=== PATIENT | male | born 1950 | race Caucasian/White ===

== ENCOUNTER 2018-08-12 07:07 | Emergency (ER) | payer OTHER ==
[2018-08-12 07:46] LABS: Absolute Lymphocytes (CBC) 1.4 K/uL (0.7-4.9); Basophils % 0.6 % (0-1.3); Eosinophils % 1.7 % (0-4.4); Hematocrit 44.5 % (39.6-49.0); Lymphocytes % 18.3 % (15.3-44.8); MPV 8.9 fL (7.6-11.3); Monocytes % 6.9 % (3.3-12.3); RBC Red Blood Cell Count 5.48 M/uL (4.33-5.43)
--- NOTE | 2018-08-12 07:56 | RAD REPORT ---
EXAM DESCRIPTION: CT - Head Brain Wo Cont - 08/12/2018 7:51 am CLINICAL HISTORY: dizziness,blurred vision Headache, drowsiness, visual disturbances COMPARISON: <Comparisons> TECHNIQUE: All CT scans are performed using dose optimization technique as appropriate and may inclu de automated exposure control or mA/KV adjustment according to patient size. FINDINGS: No intracranial hemorrhage, hydrocephalus or extra-axial fluid collection.No areas of brai n edema or evidence of midline shift. The paranasal sinuses and mastoids are clear. The calvarium is intact. IMPRESSION: No acute intracranial abnormality.
[2018-08-12 08:06] LABS: Potassium 4.2 mmol/L (3.5-5.1)
--- NOTE | 2018-08-12 09:20 | RAD REPORT ---
EXAM DESCRIPTION: MRI - Brain Wo Cont - 08/12/2018 8:54 am CLINICAL HISTORY: Dizziness, blurred vision, stroke-like symptoms COMPARISON: CT August 12 TECHNIQUE: Sagittal T1-weighted images were obtained along with axial PD, heavily T2-weighted and T2 -FLAIR images. Axial DWI and ADC mapping sequences were also obtained along with coronal heavily T2-w eighted images. FINDINGS: No intracranial hemorrhage, mass or acute infarction. There is no edema or shift of midlin e structures. No extra-axial fluid collections. Bentley-matter/white matter junction is preserved. Signa l voids are seen as a normal finding in the major intracranial vessels. Mild atrophy changes are present. Ventricles are in proportion to the amount of volume loss. Punctate white matter signal abnormalities are scattered in the cerebral white matter. In a patient this age this is most likely chronic ischemic change. Basal ganglia, thalamus and brainstem tissue clear of an y measurable chronic ischemic change. Mastoid air cells and paranasal sinuses are clear. IMPRESSION: Mild atrophy and mild chronic ischemic change. No acute intracranial finding.
--- NOTE | 2018-08-12 09:34 | EDPHYS ---
Physician Documentation [facility] Name: Finn Lu Age: 67 yrs Sex: Male : 1950 Arrival Date: 08/12/2018 Time: 07:09 Bed 6 Private MD: ED Physician Reynaldo Shearer HPI: 08/12 07:23 This 67 yrs old Male presents to ER via Ambulatory with complaints of rn Dizziness, double vision. 07:23 The patient presents with dizziness. Onset: The symptoms/episode began/occurred rn yesterday. Modifying factors: The symptoms are alleviated by closing eyes, the symptoms are aggravated by nothing. Severity of symptoms: At their worst the symptoms were mild in the emergency department the symptoms are unchanged. The patient has not experienced similar symptoms in the past. The patient has not recently seen a physician. Reports double vision that began yesterday, no blurred or decreased vision, corrected by closing either eye, no headache or trauma, takes aspirin, here because in past had spontaneous head bleed and required surgery. Does not feel like that episode but wants to make sure. No other neurological complaint. Feels dizzy due to double vision.. Historical: - Allergies: 07:25 No Known Allergies; iw - Home Meds: 07:25 amlodipine-benazepril 5-40 mg oral cap 1 cap once daily [Active]; Centrum Silver iw 0.4-300-250 mg-mcg-mcg oral tab daily [Active]; Cinnamon 500 mg oral cap daily [Active]; omeprazole 40 mg Oral cpDR 1 cap 2 times per day [Active]; Ecotrin 81 mg Oral TbEC 1 tab once daily [Active]; escitalopram oxalate 20 mg oral tab 1 tab once daily [Active]; rosuvastatin 20 mg oral tab 1 tab once daily [Active]; Novolin R 40 units Sub-Q daily [Active]; Vascepa 1 gram oral cap daily [Active]; iron oral 65 mg oral once daily [Active]; metoprolol tartrate 25 mg Oral tab 1 tab 2 times per day [Active]; [place] 3-6-9 40-60-10 mg-mg-unit oral cap daily [Active]; potassium chloride 20 mEq Oral TbER 1 tab once daily [Active]; Vitamin C Oral twice a day [Active]; - PMHx: 07:52 Diabetes - IDDM; Hypertension; Hyperlipidemia; iw - PSHx: 07:52 Heart stents; isis holes; iw - Immunization history:: Adult Immunizations up to date. - Social history:: Smoking status: Patient/guardian denies using tobacco. - Family history:: not pertinent. - Ebola Screening: : Patient negative for fever greater than or equal to 101.5 degrees Fahrenheit, and additional compatible Ebola Virus Disease symptoms Patient denies exposure to infectious person Patient denies travel to an Ebola-affected area in the 21 days before illness onset No symptoms or risks identified at this time. - Hospitalizations: : No recent hospitalization is reported. ROS: 07:25 Constitutional: Negative for fever, chills, and weight loss, Eyes: + double vision, no rn loss or decreased vision, no drainage or trauma Cardiovascular: Negative for chest pain, palpitations, and edema, Respiratory: Negative for shortness of breath, cough, wheezing, and pleuritic chest pain, Abdomen/GI: Negative for abdominal pain, nausea, vomiting, diarrhea, and constipation, MS/Extremity: Negative for injury and deformity, Skin: Negative for injury, rash, and discoloration, Neuro: Negative for headache, weakness, numbness, tingling, and seizure. Exam: 07:25 Constitutional: This is a well developed, well nourished patient who is awake, alert, rn and in no acute distress. Head/Face: Normocephalic, atraumatic. Eyes: Pupils equal round and reactive to light. Questionable left lateral rectus partial palsy. Lids and lashes normal. Conjunctiva and sclera are non-icteric and not injected. Cornea within normal limits. Periorbital areas with no swelling, redness, or edema. Diplopia corrects with closure of either eye. All visual estes intact to confrontation. ENT: MMM Cardiovascular: Regular rate and rhythm. No pulse deficits. Respiratory: Lungs have equal breath sounds bilaterally, clear to auscultation. No increased work of breathing, no retractions or nasal flaring. MS/ Extremity: Pulses equal, no cyanosis. Neurovascular intact. Full, normal range of motion. Equal circumference. Neuro: Awake and alert, GCS 15, oriented to person, place, time, and situation. Cranial nerves II-XII grossly intact. Motor strength 5/5 in all extremities. Sensory grossly intact. Cerebellar exam normal. Normal gait. 07:44 ECG was reviewed by the Attending Physician. rn Vital Signs: 07:25 BP 159 / 85; Pulse 65; Resp 16; Temp 98.3; Pulse Ox 97% on R/A; Weight 108.86 kg; iw Height 5 ft. 10 in. (177.80 cm); Pain 0/10; 08:00 BP 140 / 64; Pulse 64; Resp 16 S; Pulse Ox 96% on R/A; aa5 09:05 BP 151 / 77; Pulse 66; Resp 18 S; Temp 98.0(TE); Pulse Ox 98% on R/A; Pain 0/10; aa5 07:25 Body Mass Index 34.44 (108.86 kg, 177.80 cm) iw NIH Stroke Scale Scores: 07:20 NIHSS Score: 0 aa5 MDM: 07:13 Patient medically screened. rn 07:25 ED course: Reports just went to eye doctor and had stress test, both were ok, has rn cataract but otherwise normal.. 09:33 Differential diagnosis: CVA, generalized weakness, idiopathic dizziness, diplopia, rn cranial nerve palsy, diabetic complication. Data reviewed: vital signs, nurses notes, lab test result(s), EKG, radiologic studies, CT scan, MRI, and as a result, I will discharge patient. Counseling: I had a detailed discussion with the patient and/or guardian regarding: the historical points, exam findings, and any diagnostic results supporting the discharge/admit diagnosis, lab results, radiology results, the need for outpatient follow up, to return to the emergency department if symptoms worsen or persist or if there are any questions or concerns that arise at home. Special discussion: I discussed with the patient/guardian in detail that at this point there is no indication for admission to the hospital. It is understood, however, that if the symptoms persist or worsen the patient needs to return immediately for re-evaluation. Based on the history and exam findings, there is no indication for further emergent testing or inpatient evaluation. I discussed with the patient/guardian the need to see the opthamologist for further evaluation of the symptoms, I discussed with the patient/guardian the need to see the primary care provider for further evaluation of the symptoms. 08/12 07: Order name: CBC with Diff rn 08/12 06: Order name: Basic Metabolic Panel rn 06/21 07:22 Order name: CT Head Brain wo Cont rn 08/12 07:37 Order name: Basic Metabolic Panel; Complete Time: 08:19 EDMS 08/12 07:37 Order name: CBC with Automated Diff; Complete Time: 08:19 EDMS 08/12 07:42 Order name: Head Brain Wo Cont; Complete Time: 08:19 EDMS 08/12 07:22 Order name: IV Start; Complete Time: 07:35 rn 08/12 07:22 Order name: EKG; Complete Time: 08:25 rn 08/12 07:22 Order name: EKG - Nurse/Tech; Complete Time: 07:42 rn 08/12 07:42 Order name: EKG Electrocardiogram EDMS 08/12 08:20 Order name: Brain Wo Cont MRI rn 08/12 09:22 Order name: MRI; Complete Time: 09:32 EDMS EC:44 Rate is 66 beats/min. Rhythm is regular. QRS [place] is Normal. MT interval is normal. QRS rn interval is normal. QT interval is normal. No Q waves. T waves are Normal. No ST changes noted. Clinical impression: Normal ECG. Interpreted by me. Reviewed by me. Administered Medications: No medications were administered Disposition: 08/12/18 09:34 Discharged to Home. Impression: Diplopia. - Condition is Stable. - Discharge Instructions: Diplopia. - Medication Reconciliation Form, Thank You Letter, Antibiotic Education, Prescription Opioid Use form. - Follow up: Caty Edmond MD; When: As needed; Reason: Recheck today's complaints, Re-evaluation by your physician. - Problem is new. - Symptoms are unchanged. NIH Stroke Scale - NIH Stroke Score Date: 08/12/2018 Time: 07:20 Total Score = 0 1a. Level of Consciousness (LOC) - 0(Alert) 1b. Level of Consciousness (LOC) (Year \T\ Age) - 0(Both) 1c. LOC Commands (Open \T\ Closes Eyes/Operations Specialist) - 0(Both) 2. Best Gaze (Lateral Gaze Paresis) - 0(Normal) 3. Visual Field Loss - 0(No visual loss) 4. Facial Palsy - 0(Normal) 5a. Left Arm: Motor (10-second hold) - 0(No drift) 5b. Right Arm: Motor (10-second hold) - 0(No drift) 6a. Left Leg: Motor (5-second hold - always test supine) - 0(No drift) 6b. Right Leg: Motor (5-second hold - always test supine) - 0(No drift) 7. Limb Ataxia (finger/nose \T\ heel/mora - test with eyes open) - 0(Absent) 8. Sensory Loss (pinprick arms/legs/face) - 0(Normal) 9. Best Language: Aphasia (description/naming/reading) - 0(No aphasia) 10. Dysarthria (speech clarity - read or repeat words) - 0(Normal) 11. Extinction and Inattention (visual/tactile/auditory/spatial/personal) - 0(No abnormality) Initials: aa5 Signatures: Dispatcher [employer] EDYesica Murray RN RN iw Nieto, Roman, MD MD rn Calderon, Audri, RN RN aa5 Corrections: (The following items were deleted from the chart) 07:44 07:42 Head Brain Wo Cont ordered. EDMI EDMI 09:48 09:34 08/12/2018 09:34 Discharged to Home. Impression: Diplopia. Condition is aa5 Stable. Forms are Medication Reconciliation Form, Thank You Letter, Antibiotic Education, Prescription Opioid Use. Follow up: Caty Edmond; When: As needed; Reason: Recheck today's complaints, Re-evaluation by your physician. Problem is new. Symptoms are unchanged. rn
--- NOTE | 2018-08-12 09:34 | ER ---
Nurse's Notes [facility] Name: Finn Lu Age: 67 yrs Sex: Male : 1950 Arrival Date: 08/12/2018 Time: 07:09 Bed 6 Private MD: Diagnosis: Diplopia Presentation: 08/12 07:20 Presenting complaint: Patient states: woke up with dizziness and double vision iw yesterday morning, hx of brain bleed 6 months ago, states he was on plavix for a long time, denies trauma, denies headache or weakness today, reports felling tingling in right fingertips. Transition of care: patient was not received from another setting of care. Onset of symptoms was August 11, 2018. Risk Assessment: Do you want to hurt yourself or someone else? Patient reports no desire to harm self or others. Initial Sepsis Screen: Does the patient meet any 2 criteria? No. Patient's initial sepsis screen is negative. Does the patient have a suspected source of infection?. Care prior to arrival: None. 07:20 Method Of Arrival: Ambulatory iw 07:20 Acuity: ABIGAIL 2 iw Historical: - Allergies: 07:25 No Known Allergies; iw - Home Meds: 07:25 amlodipine-benazepril 5-40 mg oral cap 1 cap once daily [Active]; Centrum Silver iw 0.4-300-250 mg-mcg-mcg oral tab daily [Active]; Cinnamon 500 mg oral cap daily [Active]; omeprazole 40 mg Oral cpDR 1 cap 2 times per day [Active]; Ecotrin 81 mg Oral TbEC 1 tab once daily [Active]; escitalopram oxalate 20 mg oral tab 1 tab once daily [Active]; rosuvastatin 20 mg oral tab 1 tab once daily [Active]; Novolin R 40 units Sub-Q daily [Active]; Vascepa 1 gram oral cap daily [Active]; iron oral 65 mg oral once daily [Active]; metoprolol tartrate 25 mg Oral tab 1 tab 2 times per day [Active]; [place] 3-6-9 40-60-10 mg-mg-unit oral cap daily [Active]; potassium chloride 20 mEq Oral TbER 1 tab once daily [Active]; Vitamin C Oral twice a day [Active]; - PMHx: 07:52 Diabetes - IDDM; Hypertension; Hyperlipidemia; iw - PSHx: 07:52 Heart stents; isis holes; iw - Immunization history:: Adult Immunizations up to date. - Social history:: Smoking status: Patient/guardian denies using tobacco. - Family history:: not pertinent. - Ebola Screening: : Patient negative for fever greater than or equal to 101.5 degrees Fahrenheit, and additional compatible Ebola Virus Disease symptoms Patient denies exposure to infectious person Patient denies travel to an Ebola-affected area in the 21 days before illness onset No symptoms or risks identified at this time. - Hospitalizations: : No recent hospitalization is reported. Screenin:36 Abuse screen: Denies threats or abuse. Nutritional screening: No deficits noted. aa5 Tuberculosis screening: No symptoms or risk factors identified. 08:00 Fall Risk IV access (20 points). Total Betancourt Fall Scale indicates No Risk (0-24 pts). aa5 Assessment: 07:20 General: Appears comfortable, Behavior is calm, cooperative. Pain: Denies pain. Neuro: aa5 Level of Consciousness is awake, alert, obeys commands, Oriented to person, place, time, situation, Office Worker are equal bilaterally Moves all extremities. Gait is steady, Speech is normal, Facial symmetry appears normal, Pupils are PERRLA, Reports diplopia, dizziness, tingling to right fingertips . Denies weakness blurred vision headache. Cardiovascular: Heart tones S1 S2 present Rhythm is regular. Respiratory: Airway is patent Respiratory effort is even, unlabored, Respiratory pattern is regular, symmetrical. GI: No signs and/or symptoms were reported involving the gastrointestinal system. : No signs and/or symptoms were reported regarding the genitourinary system. EENT: No signs and/or symptoms were reported regarding the EENT system. Derm: Skin is pink, warm \T\ dry. Musculoskeletal: Range of motion: intact in all extremities. 07:45 Reassessment: Pt taken to CT via stretcher . aa5 08:30 Reassessment: Pt to MRI. aa5 09:00 Reassessment: Patient is alert, oriented x 3, equal unlabored respirations, skin aa5 warm/dry/pink. Pt back from MRI. Pt sitting up watching TV. Pt notified of wait time for MRI results. Pt verbalized understanding. Pt reports diplopia has not improved. . 09:45 Reassessment: Patient is alert, oriented x 3, equal unlabored respirations, skin aa5 warm/dry/pink. Patient denies pain at this time. Vital Signs: 07:25 BP 159 / 85; Pulse 65; Resp 16; Temp 98.3; Pulse Ox 97% on R/A; Weight 108.86 kg; iw Height 5 ft. 10 in. (177.80 cm); Pain 0/10; 08:00 BP 140 / 64; Pulse 64; Resp 16 S; Pulse Ox 96% on R/A; aa5 09:05 BP 151 / 77; Pulse 66; Resp 18 S; Temp 98.0(TE); Pulse Ox 98% on R/A; Pain 0/10; aa5 07:25 Body Mass Index 34.44 (108.86 kg, 177.80 cm) iw NIH Stroke Scale Scores: 07:20 NIHSS Score: 0 aa5 ED Course: 07:09 Patient arrived in ED. mr 07:13 Reynaldo Shearer MD is Attending Physician. rn 07:14 Blanca Garcia, JAREN is Primary Nurse. aa5 07:20 Arm band placed on Patient placed in an exam room, on a stretcher. aa5 07:20 Patient has correct armband on for positive identification. Bed in low position. Call aa5 light in reach. Side rails up X 1. 07:21 Triage completed. iw 07:30 Initial lab(s) drawn, by me, sent to lab. Inserted saline lock: 20 gauge in right aa5 antecubital area, using aseptic technique. Blood collected. 07:44 EKG done, by crime lab technician. reviewed by Reynaldo Shearer MD. at1 07:47 No provider procedures requiring assistance completed. aa5 07:51 Head Brain Wo Cont In Process Unspecified. EDMS 08:43 Patient moved to MRI via wheelchair. em2 09:21 MRI completed. Patient tolerated well. Patient moved back from MRI. em2 09:34 Caty Edmond MD is Referral Physician. rn 09:45 IV discontinued, intact, bleeding controlled, No redness/swelling at site. Pressure aa5 dressing applied. Administered Medications: No medications were administered Outcome: 09:34 Discharge ordered by MD. rn 09:45 Discharged to home ambulatory. aa5 09:45 Condition: stable 09:45 Discharge instructions given to patient, Instructed on discharge instructions, follow up and referral plans. Demonstrated understanding of instructions, follow-up care. 09:48 Patient left the ED. aa5 NIH Stroke Scale - NIH Stroke Score Date: 08/12/2018 Time: 07:20 Total Score = 0 1a. Level of Consciousness (LOC) - 0(Alert) 1b. Level of Consciousness (LOC) (Year \T\ Age) - 0(Both) 1c. LOC Commands (Open \T\ Closes Eyes/Dynamics Ax Developer) - 0(Both) 2. Best Gaze (Lateral Gaze Paresis) - 0(Normal) 3. Visual Field Loss - 0(No visual loss) 4. Facial Palsy - 0(Normal) 5a. Left Arm: Motor (10-second hold) - 0(No drift) 5b. Right Arm: Motor (10-second hold) - 0(No drift) 6a. Left Leg: Motor (5-second hold - always test supine) - 0(No drift) 6b. Right Leg: Motor (5-second hold - always test supine) - 0(No drift) 7. Limb Ataxia (finger/nose \T\ heel/mora - test with eyes open) - 0(Absent) 8. Sensory Loss (pinprick arms/legs/face) - 0(Normal) 9. Best Language: Aphasia (description/naming/reading) - 0(No aphasia) 10. Dysarthria (speech clarity - read or repeat words) - 0(Normal) 11. Extinction and Inattention (visual/tactile/auditory/spatial/personal) - 0(No abnormality) Initials: aa5 Signatures: Dispatcher [employer] [facility] Alaina Brown Irene, JAREN EASTMAN iw Reynaldo Shearer MD MD rn Calderon, Audri, RN RN aa5 [place] em2 [place], backwinder EKG Tat1 Corrections: (The following items were deleted from the chart) 07:50 07:25 BP 159 / 85; Pulse 65bpm; Resp 16bpm; Pulse Ox 97% RA; Temp 98.3F; iw iw 09:06 09:05 Pulse 66bpm; Resp 18bpm; Spontaneous; Pulse Ox 98% RA; Temp 98.0F aa5 Temporal; Pain 0/10; aa5 09:06 09:00 Reassessment: Patient is alert, oriented x 3, equal unlabored aa5 respirations, skin warm/dry/pink. Pt back from MRI. aa5
--- NOTE | 2018-08-12 10:47 | EKG ---
Test Date: 2018-08-12 Test Time: 07:44:38 Compo Caster: EDILBERTO MEASUREMENT RESULTS: Intervals: Rate: 66 KS: 156 QRSD: 108 QT: 420 QTc: 440 [place]: P: 38 KS: 156 QRS: 49 T: 60 INTERPRETIVE STATEMENTS: Normal sinus rhythm Normal ECG No previous ECG available for comparison Electronically Signed On 08-12-18 10:47:35 CDT by Yoandy Snyder
== END 2018-08-12 09:48 | disposition home or self-care (01) ==
LOC: ER 07:07
DX: H53.2 Diplopia (principal); E11.9 Type 2 diabetes mellitus without complications; I10 Essential (primary) hypertension; E78.5 Hyperlipidemia, unspecified; Z79.4 Long term (current) use of insulin
CPT/HCPCS: 36415; 70450; 70551; 80048; 85025; 93005; 99284

== ENCOUNTER 2018-09-28 17:03 | Emergency (ER) | payer OTHER ==
[2018-09-28] MEDS ORDERED: BUPIVACAINE 0.5% PF 10 ML VIAL ONE (17:31)
--- NOTE | 2018-09-28 17:46 | RAD REPORT ---
EXAM DESCRIPTION: RAD -Hand Left 3 View - 09/28/2018 5:37 pm CLINICAL HISTORY: Left hand pain status post injury FINDINGS: Comminuted fracture involves the distal aspect of the second distal phalanx. No dislocatio n.
[2018-09-28] MEDS ORDERED: CEFAZOLIN SODIUM 1 GM/VIAL ONE (18:54)
[2018-09-28] MEDS ORDERED: TETANUS & DIPHTHERIA TOX,ADULT 0.5 ML VIAL ONE (18:55)
[2018-09-28] MEDS ORDERED: WATER FOR INJ,STERILE 10 ML ONE (18:56)
--- NOTE | 2018-09-28 18:58 | ER ---
Nurse's Notes [facility] Name: Finn Lu Age: 68 yrs Sex: Male : 1950 Arrival Date: 09/28/2018 Time: 17:04 Bed 13 Private MD: Diagnosis: Laceration without foreign body of left index finger with damage to nail;Open fracuter left index finger Presentation: 09/28 17:08 Presenting complaint: Patient states: Distal left 2nd digit VS hand saw. Transition of care: patient was not received from another setting of care. Onset of symptoms was September 28, 2018. Risk Assessment: Do you want to hurt yourself or someone else? Patient reports no desire to harm self or others. Initial Sepsis Screen: Does the patient meet any 2 criteria? No. Patient's initial sepsis screen is negative. Does the patient have a suspected source of infection? No. Patient's initial sepsis screen is negative. Care prior to arrival: None. 17:08 Method Of Arrival: Ambulatory aj 17:08 Acuity: ABIGAIL 4 aj Triage Assessment: 17:09 General: Appears in no apparent distress. comfortable, Behavior is calm, cooperative, aj appropriate for age. Pain: Complains of pain in dorsal aspect of distal phalanx of left index finger. Neuro: Level of Consciousness is awake, alert, obeys commands, Oriented to person, place, time, situation, Appropriate for age. Respiratory: Airway is patent Respiratory effort is even, unlabored, Respiratory pattern is regular, symmetrical. Derm: Skin is intact, is healthy with good turgor, Skin is pink, warm \T\ dry. normal. Injury Description: Laceration sustained to dorsal aspect of distal phalanx of left index finger. Historical: - Allergies: 17:09 No Known Allergies; aj - Home Meds: 17:09 amlodipine-benazepril 5-40 mg Oral cap 1 cap once daily [Active]; Centrum Silver aj 0.4-300-250 mg-mcg-mcg Oral tab daily [Active]; Cinnamon 500 mg Oral cap daily [Active]; Ecotrin 81 mg Oral TbEC 1 tab once daily [Active]; escitalopram oxalate 20 mg Oral tab 1 tab once daily [Active]; iron 65 mg Oral once daily [Active]; metoprolol tartrate 25 mg Oral tab 1 tab 2 times per day [Active]; Novolin R 40 units Sub-Q daily [Active]; [place] 3-6-9 40-60-10 mg-mg-unit Oral cap daily [Active]; omeprazole 40 mg Oral cpDR 1 cap 2 times per day [Active]; potassium chloride 20 mEq Oral TbER 1 tab once daily [Active]; rosuvastatin 20 mg Oral tab 1 tab once daily [Active]; Vascepa 1 gram Oral cap daily [Active]; Vitamin C Oral twice a day [Active]; - PMHx: 17:09 Diabetes - IDDM; Hyperlipidemia; Hypertension; aj - PSHx: 17:09 Heart stents; isis holes; aj - Immunization history:: Last tetanus immunization: unknown. - Social history:: Smoking status: Patient/guardian denies using tobacco. - Ebola Screening: : Patient negative for fever greater than or equal to 101.5 degrees Fahrenheit, and additional compatible Ebola Virus Disease symptoms Patient denies exposure to infectious person Patient denies travel to an Ebola-affected area in the 21 days before illness onset No symptoms or risks identified at this time. Screenin:49 Abuse screen: Denies threats or abuse. Denies injuries from another. Nutritional wh screening: No deficits noted. Tuberculosis screening: No symptoms or risk factors identified. Fall Risk None identified. Assessment: 18:36 General: Appears in no apparent distress. Behavior is calm, cooperative, appropriate wh for age. Pain: Complains of pain in left index finger, dorsal aspect of distal phalanx of left index finger and left index fingernail Pain does not radiate. Pain currently is 6 out of 10 on a pain scale. Neuro: Level of Consciousness is awake, alert, obeys commands, Oriented to person, place, time, situation, Appropriate for age. Cardiovascular: Capillary refill < 3 seconds. Respiratory: Airway is patent Respiratory effort is even, unlabored, Respiratory pattern is regular, symmetrical. GI: Abdomen is flat, non-distended. : No signs and/or symptoms were reported regarding the genitourinary system. EENT: No signs and/or symptoms were reported regarding the EENT system. Derm: Skin is intact, is healthy with good turgor, Skin is pink, warm \T\ dry. normal. Musculoskeletal: Range of motion: intact in all extremities. Injury Description: Laceration sustained to left index finger, dorsal aspect of distal phalanx of left index finger and left index fingernail is clean, full thickness, was sustained 30-60 minutes ago. a small amount of bleeding noted at this time. 19:24 Reassessment: Patient appears in no apparent distress at this time. Patient and/or family updated on plan of care and expected duration. Pain level reassessed. Patient is alert, oriented x 3, equal unlabored respirations, skin warm/dry/pink. Patient denies pain at this time. Vital Signs: 17:09 BP 176 / 66; Pulse 81; Resp 16; Temp 97.4; Pulse Ox 95% on R/A; Weight 117.93 kg; aj Height 5 ft. 11 in. (180.34 cm); 18:00 BP 173 / 87; Pulse 78; Resp 18; Pulse Ox 99% on R/A; wh 19:26 BP 147 / 78; Pulse 75; Resp 18; Pulse Ox 99% on R/A; 17:09 Body Mass Index 36.26 (117.93 kg, 180.34 cm) ED Course: 17:04 Patient arrived in ED. as 17:08 Triage completed. aj 17:09 Arm band placed on left wrist. Patient placed in an exam room. 17:15 Bowen Wilson PA is PHCP. jr8 17:15 Lawrence Lin MD is Attending Physician. jr8 17:22 Marlene Moreau is Primary Nurse. 17:38 XRAY Hand LEFT 3 View In Process Unspecified. EDMS 18:30 Assist provider with laceration repair on left index finger, dorsal aspect of distal wh phalanx of left index finger and left index fingernail that was 2.5 cm. or less using sutures. Set up tray. Performed by Bowen SALDAÑA Dressed with 4X4s, Patient tolerated well. Patient did not have IV access during this emergency room visit. 18:49 Patient has correct armband on for positive identification. Pulse ox on. NIBP on. 18:56 Gonzalez Zhu MD is Referral Physician. jr8 Administered Medications: 17:22 CANCELLED (Physician Discretion): Bupivacaine (0.5 %) 11 vials 10 ml Infiltration once jr8 19:07 Drug: Tetanus-Diphtheria Toxoid Adult 0.5 ml {Edge [employer]ander Operator: [employer]. Exp: 05/14/2020. Lot #: [id number]. } Route: IM; Site: left deltoid; 19:27 Follow up: Response: No adverse reaction 19:07 Drug: Ancef 1 grams Route: IM; Site: right gluteus; 19:27 Follow up: Response: No adverse reaction 19: Drug: Bupivacaine (0.5 %) 1 vials {Note: Admisntered by Steve .} Volume: 10 ml; Route: wh Infiltration; Outcome: 18:57 Discharge ordered by MD. rubio 19:25 Discharged to home ambulatory. 19:25 Condition: good 19:25 Discharge instructions given to patient, Instructed on discharge instructions, follow up and referral plans. no drinking with medication, no driving heavy equipment, medication usage, wound care, Demonstrated understanding of instructions, follow-up care, medications, wound care, Prescriptions given X 2. 19:26 Patient left the ED. Signatures: Dispatcher [employer] EDMS Taylor Roberto RN RN aj Martinez, Amelia as Roszak, Josh, PA PA jr8 Habalo, Winsy
--- NOTE | 2018-09-28 18:58 | EDPHYS ---
Physician Documentation [facility] Name: Finn Lu Age: 68 yrs Sex: Male : 1950 Arrival Date: 09/28/2018 Time: 17:04 Bed 13 Private MD: ED Physician Lawrence Lin HPI: 09/28 17:39 This 68 yrs old Male presents to ER via Ambulatory with complaints of Finger jr8 Injury. 17:39 Onset: The symptoms/episode began/occurred acutely, today. The patient has not jr8 experienced similar symptoms in the past. The patient has not recently seen a physician. Was using table saw and kicked back causing laceration distal tip second digit affecting nail bed as well . Historical: - Allergies: 17:09 No Known Allergies; aj - Home Meds: 17:09 amlodipine-benazepril 5-40 mg Oral cap 1 cap once daily [Active]; Centrum Silver aj 0.4-300-250 mg-mcg-mcg Oral tab daily [Active]; Cinnamon 500 mg Oral cap daily [Active]; Ecotrin 81 mg Oral TbEC 1 tab once daily [Active]; escitalopram oxalate 20 mg Oral tab 1 tab once daily [Active]; iron 65 mg Oral once daily [Active]; metoprolol tartrate 25 mg Oral tab 1 tab 2 times per day [Active]; Novolin R 40 units Sub-Q daily [Active]; [place] 3-6-9 40-60-10 mg-mg-unit Oral cap daily [Active]; omeprazole 40 mg Oral cpDR 1 cap 2 times per day [Active]; potassium chloride 20 mEq Oral TbER 1 tab once daily [Active]; rosuvastatin 20 mg Oral tab 1 tab once daily [Active]; Vascepa 1 gram Oral cap daily [Active]; Vitamin C Oral twice a day [Active]; - PMHx: 17:09 Diabetes - IDDM; Hyperlipidemia; Hypertension; aj - PSHx: 17:09 Heart stents; isis holes; aj - Immunization history:: Last tetanus immunization: unknown. - Social history:: Smoking status: Patient/guardian denies using tobacco. - Ebola Screening: : Patient negative for fever greater than or equal to 101.5 degrees Fahrenheit, and additional compatible Ebola Virus Disease symptoms Patient denies exposure to infectious person Patient denies travel to an Ebola-affected area in the 21 days before illness onset No symptoms or risks identified at this time. ROS: 17:39 Eyes: Negative for injury, pain, redness, and discharge, ENT: Negative for injury, jr8 pain, and discharge, Neck: Negative for injury, pain, and swelling, Cardiovascular: Negative for chest pain, palpitations, and edema, Respiratory: Negative for shortness of breath, cough, wheezing, and pleuritic chest pain, Abdomen/GI: Negative for abdominal pain, nausea, vomiting, diarrhea, and constipation, Back: Negative for injury and pain, Skin: Negative for injury, rash, and discoloration, Neuro: Negative for headache, weakness, numbness, tingling, and seizure. 17:39 MS/extremity: Positive for injury or acute deformity, laceration, pain, tenderness, of the dorsal aspect of distal phalanx of left index finger. Exam: 17:39 Eyes: Pupils equal round and reactive to light, extra-ocular motions intact. Lids and jr8 lashes normal. Conjunctiva and sclera are non-icteric and not injected. Cornea within normal limits. Periorbital areas with no swelling, redness, or edema. ENT: Nares patent. No nasal discharge, no septal abnormalities noted. Tympanic membranes are normal and external auditory canals are clear. Oropharynx with no redness, swelling, or masses, exudates, or evidence of obstruction, uvula midline. Mucous membranes moist. Neck: Trachea midline, no thyromegaly or masses palpated, and no cervical lymphadenopathy. Supple, full range of motion without nuchal rigidity, or vertebral point tenderness. No Meningismus. Cardiovascular: Regular rate and rhythm with a normal S1 and S2. No gallops, murmurs, or rubs. Normal PMI, no JVD. No pulse deficits. Respiratory: Lungs have equal breath sounds bilaterally, clear to auscultation and percussion. No rales, rhonchi or wheezes noted. No increased work of breathing, no retractions or nasal flaring. Abdomen/GI: Soft, non-tender, with normal bowel sounds. No distension or tympany. No guarding or rebound. No evidence of tenderness throughout. Back: No spinal tenderness. No costovertebral tenderness. Full range of motion. Skin: Warm, dry with normal turgor. Normal color with no rashes, no lesions, and no evidence of cellulitis. Neuro: Awake and alert, GCS 15, oriented to person, place, time, and situation. Cranial nerves II-XII grossly intact. Motor strength 5/5 in all extremities. Sensory grossly intact. Cerebellar exam normal. Normal gait. 17:39 Musculoskeletal/extremity: Extremities: grossly normal except: noted in the dorsal aspect of distal phalanx of left index finger: Patient has laceration to distal tip of 2nd digit involving the nailbed. Pad of finger intact. Partial amputation present. Bleeding controlled , ROM: intact in all extremities, Circulation is intact in all extremities. Sensation intact. Vital Signs: 17:09 BP 176 / 66; Pulse 81; Resp 16; Temp 97.4; Pulse Ox 95% on R/A; Weight 117.93 kg; aj Height 5 ft. 11 in. (180.34 cm); 18:00 BP 173 / 87; Pulse 78; Resp 18; Pulse Ox 99% on R/A; wh 19:26 BP 147 / 78; Pulse 75; Resp 18; Pulse Ox 99% on R/A; wh 17:09 Body Mass Index 36.26 (117.93 kg, 180.34 cm) aj Laceration: 18:54 Wound Repair of 2.5cm ( 1.0in ) full thickness laceration to dorsal aspect of distal jr8 phalanx of left index finger. Distal neuro/vascular/tendon intact. Anesthesia: Digital block administered with 4 mls of 0.5% marcaine. Wound prep: Extensive cleansing with betadine, Wound irrigation with saline, Wound explored extensively, Copious irrigation. Skin closed with 4 4-0 Prolene using interrupted sutures and sterile technique. tuft closed with 2 4-0 chromic using interrupted sutures and sterile technique. Patient tolerated well. MDM: 17:15 Patient medically screened. jr8 18:54 Data reviewed: vital signs, nurses notes, radiologic studies, plain films, and as a jr8 result, I will discharge patient. Data interpreted: Pulse oximetry: on room air is 99 %. Interpretation: normal. Counseling: I had a detailed discussion with the patient and/or guardian regarding: the historical points, exam findings, and any diagnostic results supporting the discharge/admit diagnosis, radiology results, the need for outpatient follow up, a hand specialist, to return to the emergency department if symptoms worsen or persist or if there are any questions or concerns that arise at home. 09/28 17:21 Order name: XRAY Hand LEFT 3 View; Complete Time: 17:48 [facility] 09/28 17:22 Order name: Chromic, Sutures; Complete Time: 17:38 [facility] 09/28 17:22 Order name: Prolene, Sutures; Complete Time: 17:38 [facility] 09/28 17:22 Order name: Dressing - Wound; Complete Time: 17:38 [facility] 09/28 17:22 Order name: Gloves, Sterile; Complete Time: 17:39 [facility] 09/28 17:22 Order name: Setup Suture Tray; Complete Time: 17:39 Administered Medications: 17:22 CANCELLED (Physician Discretion): Bupivacaine (0.5 %) 11 vials 10 ml Infiltration once [facility] 19:07 Drug: Tetanus-Diphtheria Toxoid Adult 0.5 ml {Sc[employer] Operator: [employer]. Exp: 05/14/2020. Lot #: [id number]. } Route: IM; Site: left deltoid; 19:27 Follow up: Response: No adverse reaction 19:07 Drug: Ancef 1 grams Route: IM; Site: right gluteus; 19:27 Follow up: Response: No adverse reaction 19:07 Drug: Bupivacaine (0.5 %) 1 vials {Note: Admisntered by Steve .} Volume: 10 ml; Route: Infiltration; Disposition: 09/29 09:12 Co-signature as Attending Physician, Lawrence Lin MD I agree with the assessment and mable plan of care. Disposition: 09/28/18 18:57 Discharged to Home. Impression: Laceration without foreign body of left index finger with damage to nail, Open fracuter left index finger. - Condition is Stable. - Discharge Instructions: Finger Fracture, Laceration Care, Adult. - Prescriptions for Keflex 500 mg Oral Capsule - take 1 capsule by ORAL route every 6 hours for 7 days; 28 capsule. Tylenol- Codeine #3 300-30 mg Oral Tablet - take 2 tablets by ORAL route every 6 hours As needed; 12 tablet. - Medication Reconciliation Form, Thank You Letter, Antibiotic Education, Prescription Opioid Use form. - Follow up: Gonzalez Zhu MD; When: 1 - 2 days; Reason: Wound Recheck, Recheck today's complaints, Continuance of care, Re-evaluation by your physician. - Problem is new. - Symptoms have improved. Signatures: Dispatcher [employer] EDTaylor Costa, Lawrence Xiong RN, MD MD cha Roszak, Josh, PA PA jr8 Fracisco Moreauyudi wh Corrections: (The following items were deleted from the chart) 09/28 17:22 17:22 Bupivacaine (0.5 %) 11 vials 10 ml Infiltration once ordered. jr8 jr8 19:26 18:57 09/28/2018 18:57 Discharged to Home. Impression: Laceration without foreign body wh of left index finger with damage to nail; Open fracuter left index finger. Condition is Stable. Forms are Medication Reconciliation Form, Thank You Letter, Antibiotic Education, Prescription Opioid Use. Follow up: Gonzalez Zhu; When: 1 - 2 days; Reason: Wound Recheck, Recheck today's complaints, Continuance of care, Re-evaluation by your physician. Problem is new. Symptoms have improved. jr8
== END 2018-09-28 19:26 | disposition home or self-care (01) ==
LOC: ER 17:03
PROC: 0JQK0ZZ Repair Left Hand Subcutaneous Tissue and Fascia, Open Approach (ICD-10-PCS; principal; 2018-09-28)
DX: S62.601B Fracture of unspecified phalanx of left index finger, initial encounter for open fracture (principal); S61.311A Laceration without foreign body of left index finger with damage to nail, initial encounter; W31.2XXA Contact with powered woodworking and forming machines, initial encounter; Y93.89 Activity, other specified; Y92.9 Unspecified place or not applicable; Z23 Encounter for immunization; Z79.4 Long term (current) use of insulin; Z95.818 Presence of other cardiac implants and grafts; I10 Essential (primary) hypertension; E11.9 Type 2 diabetes mellitus without complications; E78.5 Hyperlipidemia, unspecified
CPT/HCPCS: 73130; 90714; 12001; J0690; 90471; 96372; 99284

== ENCOUNTER 2018-11-30 05:39 | Emergency (ER) | payer OTHER ==
[2018-11-30 06:30] LABS: Absolute Lymphocytes (CBC) 1.4 K/uL (0.7-4.9); Basophils % 0.8 % (0-1.3); Hematocrit 49.3 % (39.6-49.0); Lymphocytes % 24.3 % (15.3-44.8); MPV 9.1 fL (7.6-11.3); RBC Red Blood Cell Count 5.89 M/uL (4.33-5.43)
[2018-11-30 06:37] LABS: Protime INR 0.98
[2018-11-30 06:42] LABS: ALT/SGPT 27 U/L (12-78); AST/SGOT 17 U/L (15-37); Albumin 3.5 g/dL (3.4-5.0); Alkaline Phosphatase 107 U/L (45-117); BUN Blood Urea Nitrogen 18 mg/dL (7-18); Bicarbonate 28 mmol/L (21-32); Bilirubin Direct 0.1 mg/dL (0-0.2); Bilirubin Total 0.4 mg/dL (0.2-1.0); Glucose Level 201 mg/dL (74-106); Magnesium 2.1 mg/dL (1.8-2.4); NT PRO-BNP 331 pg/mL (<125); Protein, Total 6.8 g/dL (6.4-8.2); Sodium Level 142 mmol/L (136-145); Troponin (Emerg Dept Use Only) < 0.02 ng/mL (0.0-0.045)
[2018-11-30] MEDS ORDERED: hydrOXYzine HCl 25 MG TAB ONE (06:49)
--- NOTE | 2018-11-30 07:14 | RAD REPORT ---
EXAM DESCRIPTION: RAD - Chest Single View - 11/30/2018 6:59 am CLINICAL HISTORY: SOB Chest pain. COMPARISON: No comparisons FINDINGS: Portable technique limits examination quality. The lungs are emphysematous but grossly clear. The heart is upper limit of normal in size. No displac ed fractures. IMPRESSION: COPD.
--- NOTE | 2018-11-30 07:35 | ER ---
Nurse's Notes [facility] Name: Finn Lu Age: 68 yrs Sex: Male : 1950 Arrival Date: 11/30/2018 Time: 05:40 Bed 18 Private MD: Diagnosis: Shortness of breath Presentation: 11/30 05:45 Presenting complaint: Patient states: "I've been having shortness of breath for the cc3 past 2-3 days and today morning I was awakened by feeling irritable and shortness of breath and wasn't able to go back to sleep". Transition of care: patient was not received from another setting of care. Onset of symptoms was November 30, 2018. Risk Assessment: Do you want to hurt yourself or someone else? Patient reports no desire to harm self or others. Initial Sepsis Screen: Does the patient meet any 2 criteria? No. Patient's initial sepsis screen is negative. Does the patient have a suspected source of infection? No. Patient's initial sepsis screen is negative. Care prior to arrival: None. 05:45 Method Of Arrival: Ambulatory cc3 05:45 Acuity: ABIGAIL 3 cc3 Triage Assessment: 05:45 General: Appears in no apparent distress. uncomfortable, Behavior is calm, cooperative, cc3 appropriate for age. Pain: Denies pain. EENT: No signs and/or symptoms were reported regarding the EENT system. Neuro: Level of Consciousness is awake, alert, obeys commands, Oriented to person, place, time, situation, Appropriate for age. Cardiovascular: Denies chest pain, lightheadedness, nausea, palpitations, syncope, vomiting, Heart tones S1 S2 present Capillary refill in bilateral fingers Patient's skin is warm and dry. Rhythm is sinus rhythm. Respiratory: Reports shortness of breath at rest on exertion since 2-3 days Airway is patent Respiratory effort is even, unlabored, Respiratory pattern is regular, symmetrical, Breath sounds are clear bilaterally. Onset: The symptoms/episode began/occurred 2-3 days, the patient has mild shortness of breath. GI: Abdomen is round obese. : No signs and/or symptoms were reported regarding the genitourinary system. Derm: Skin is intact, is healthy with good turgor, Skin is flushed, Skin temperature is warm. Musculoskeletal: Circulation, motion, and sensation intact. Range of motion: intact in all extremities. Historical: - Allergies: 05:45 No Known Allergies; cc3 - Home Meds: 05:45 amlodipine-benazepril 5-40 mg Oral cap 1 cap once daily [Active]; Centrum Silver cc3 0.4-300-250 mg-mcg-mcg Oral tab daily [Active]; Cinnamon 500 mg Oral cap daily [Active]; Ecotrin 81 mg Oral TbEC 1 tab once daily [Active]; escitalopram oxalate 20 mg Oral tab 1 tab once daily [Active]; iron 65 mg Oral once daily [Active]; metoprolol tartrate 25 mg Oral tab 1 tab 2 times per day [Active]; Novolin R 40 units Sub-Q daily [Active]; [place] 3-6-9 40-60-10 mg-mg-unit Oral cap daily [Active]; omeprazole 40 mg Oral cpDR 1 cap 2 times per day [Active]; potassium chloride 20 mEq Oral TbER 1 tab once daily [Active]; rosuvastatin 20 mg Oral tab 1 tab once daily [Active]; Vascepa 1 gram Oral cap daily [Active]; Vitamin C Oral twice a day [Active]; - PMHx: 05:45 Diabetes - IDDM; Hyperlipidemia; Hypertension; CHF; cc3 - PSHx: 05:45 Heart stents; cc3 - Immunization history:: Adult Immunizations up to date. - Social history:: Smoking status: Patient/guardian denies using tobacco, the patient reports quitting approximately 25 years ago. - Ebola Screening: : No symptoms or risks identified at this time. Screenin:45 Abuse screen: Denies threats or abuse. Denies injuries from another. Nutritional cc3 screening: No deficits noted. Tuberculosis screening: No symptoms or risk factors identified. Fall Risk Ambulatory Aid- None/Bed Rest/Nurse Assist (0 pts). Gait- Normal/Bed Rest/Wheelchair (0 pts) Mental Status- Oriented to own ability (0 pts). Assessment: 05:45 General: see triage assessment. cc3 06:30 Reassessment: Patient appears in no apparent distress at this time. Patient and/or cc3 family updated on plan of care and expected duration. Pain level reassessed. Patient is alert, oriented x 3, equal unlabored respirations, skin warm/dry/pink. Patient denies pain at this time. 07:15 Reassessment: Pt sitting up in bed watching TV. Equal unlabored respirations, skin is aa5 pink/warm/dry. Face is red. Pt states no complaints at this time. Pt notified of wait time for disposition. . 07:15 Cardiovascular: Rhythm is sinus rhythm. Respiratory: Breath sounds are diminished aa5 bilaterally. 07:24 Reassessment: PA at bedside . aa5 08:18 Reassessment: Patient is alert, oriented x 3, equal unlabored respirations, skin aa5 warm/dry/pink. Vital Signs: 05:45 BP 157 / 84; Pulse 81; Resp 19 S; Temp 98.1(O); Pulse Ox 99% on R/A; Weight 122.47 kg cc3 (R); Height 5 ft. 11 in. (180.34 cm) (R); Pain 0/10; 06:45 BP 161 / 81; Pulse 74; Resp 18 S; Pulse Ox 99% on 2 lpm NC; Pain 0/10; cc3 07:20 BP 152 / 87; Pulse 73; Resp 20 S; Pulse Ox 99% on 2 lpm NC; aa5 08:00 BP 151 / 84; Pulse 71; Resp 18 S; Pulse Ox 98% on R/A; Pain 0/10; aa5 05:45 Body Mass Index 37.66 (122.47 kg, 180.34 cm) cc3 ED Course: 05:40 Patient arrived in ED. ds1 05:43 Bowen Wilson PA is PHCP. jr8 05:43 Sam Valerio MD is Attending Physician. jr8 05:45 Arm band placed on right wrist. EKG completed in triage. Results shown to MD. cc3 05:45 Patient has correct armband on for positive identification. Placed in gown. Bed in low cc3 position. Call light in reach. Side rails up X2. awake overnight monitor on. Pulse ox on. NIBP on. 05:49 Parvin Callejas is Primary Nurse. cc3 05:57 Triage completed. cc3 05:59 Inserted saline lock: 20 gauge in right antecubital area, using aseptic technique. ao Blood collected. 07:00 Report given to JAREN Rios. cc3 07:00 Report received from JAREN Melendrez. aa5 07:01 XRAY Chest (1 view) In Process Unspecified. EDMS 07:02 Blanca Garcia, RN is Primary Nurse. aa5 08:18 No provider procedures requiring assistance completed. IV discontinued, intact, aa5 bleeding controlled, No redness/swelling at site. Pressure dressing applied. Administered Medications: 06:50 Drug: hydrOXYzine 50 mg Route: PO; cc3 07:01 Follow up: Response: No adverse reaction cc3 Outcome: 07:34 Discharge ordered by . ramiro 08:18 Discharged to home ambulatory. aa5 08:18 Condition: stable 08:18 Discharge instructions given to patient, Instructed on discharge instructions, follow up and referral plans. Demonstrated understanding of instructions, follow-up care. 08:23 Patient left the ED. aa5 Signatures: Dispatcher [employer] [facility] Archana Chamorro ds1 Blanca Garcia, RN RN aa5 Bowen Wilson PA PA jr8 Jose Maria Hays RN RN ao Cordel, Charlene cc3 Corrections: (The following items were deleted from the chart) 06:39 05:45 Respiratory: Reports shortness of breath at rest on exertion since 2-3 days cc3 Airway is patent Respiratory effort is even, unlabored, Respiratory pattern is regular, symmetrical, Onset: The symptoms/episode began/occurred 2-3 days, the patient has mild shortness of breath cc3 06:43 05:45 Respiratory: Reports shortness of breath at rest on exertion since 2-3 days cc3 Airway is patent Respiratory effort is even, unlabored, Respiratory pattern is regular, symmetrical, Onset: The symptoms/episode began/occurred 2-3 days, the patient has mild shortness of breath cc3
--- NOTE | 2018-11-30 07:35 | EDPHYS ---
Physician Documentation [facility] Name: Finn Lu Age: 68 yrs Sex: Male : 1950 Arrival Date: 11/30/2018 Time: 05:40 Bed 18 Private MD: ED Physician Sam Valerio HPI: 11/30 06:34 This 68 yrs old Male presents to ER via Ambulatory with complaints of jr8 Shortness Of Breath. 06:34 The patient has shortness of breath at rest, that woke him/her from sleep. Onset: The jr8 symptoms/episode began/occurred last week. Associated signs and symptoms: Pertinent negatives: chest pain, non-productive cough, productive cough, diaphoresis, dizziness, fever, hemoptysis, loss of consciousness, nausea, visual changes. The patient has experienced similar episodes in the past. PT reports feeling more SOB over the last week and waking up at night the last three nights feeling SOB. Reports being taken off of his lasix by Dr. Gonsalez but has taken a dose once a day the last couple days. Historical: - Allergies: 05:45 No Known Allergies; cc3 - Home Meds: 05:45 amlodipine-benazepril 5-40 mg Oral cap 1 cap once daily [Active]; Centrum Silver cc3 0.4-300-250 mg-mcg-mcg Oral tab daily [Active]; Cinnamon 500 mg Oral cap daily [Active]; Ecotrin 81 mg Oral TbEC 1 tab once daily [Active]; escitalopram oxalate 20 mg Oral tab 1 tab once daily [Active]; iron 65 mg Oral once daily [Active]; metoprolol tartrate 25 mg Oral tab 1 tab 2 times per day [Active]; Novolin R 40 units Sub-Q daily [Active]; [place] 3-6-9 40-60-10 mg-mg-unit Oral cap daily [Active]; omeprazole 40 mg Oral cpDR 1 cap 2 times per day [Active]; potassium chloride 20 mEq Oral TbER 1 tab once daily [Active]; rosuvastatin 20 mg Oral tab 1 tab once daily [Active]; Vascepa 1 gram Oral cap daily [Active]; Vitamin C Oral twice a day [Active]; - PMHx: 05:45 Diabetes - IDDM; Hyperlipidemia; Hypertension; CHF; cc3 - PSHx: 05:45 Heart stents; cc3 - Immunization history:: Adult Immunizations up to date. - Social history:: Smoking status: Patient/guardian denies using tobacco, the patient reports quitting approximately 25 years ago. - Ebola Screening: : No symptoms or risks identified at this time. ROS: 06:34 Constitutional: Negative for fever, chills, and weight loss, Eyes: Negative for injury, jr8 pain, redness, and discharge, ENT: Negative for injury, pain, and discharge, Neck: Negative for injury, pain, and swelling, Cardiovascular: Negative for chest pain, palpitations, and edema, Abdomen/GI: Negative for abdominal pain, nausea, vomiting, diarrhea, and constipation, Back: Negative for injury and pain, MS/Extremity: Negative for injury and deformity, Neuro: Negative for headache, weakness, numbness, tingling, and seizure. 06:34 Respiratory: Positive for orthopnea, shortness of breath, Negative for cough. Exam: 06:34 Chest/axilla: Normal chest wall appearance and motion. Nontender with no deformity. jr8 No lesions are appreciated. Cardiovascular: Regular rate and rhythm with a normal S1 and S2. No gallops, murmurs, or rubs. Normal PMI, no JVD. No pulse deficits. Respiratory: Lungs have equal breath sounds bilaterally, clear to auscultation and percussion. No rales, rhonchi or wheezes noted. No increased work of breathing, no retractions or nasal flaring. Abdomen/GI: Soft, non-tender, with normal bowel sounds. No distension or tympany. No guarding or rebound. No evidence of tenderness throughout. Back: No spinal tenderness. No costovertebral tenderness. Full range of motion. Neuro: Awake and alert, GCS 15, oriented to person, place, time, and situation. Cranial nerves II-XII grossly intact. Motor strength 5/5 in all extremities. Sensory grossly intact. Cerebellar exam normal. Normal gait. 06:34 Constitutional: The patient appears in no acute distress, alert, awake, comfortable. 06:34 Head/face: Exam is negative for acute changes. 06:34 Eyes: Periorbital structures: appear normal, Pupils: equal, round, and reactive to light and accomodation, Extraocular movements: no acute changes. Vital Signs: 05:45 BP 157 / 84; Pulse 81; Resp 19 S; Temp 98.1(O); Pulse Ox 99% on R/A; Weight 122.47 kg cc3 (R); Height 5 ft. 11 in. (180.34 cm) (R); Pain 0/10; 06:45 BP 161 / 81; Pulse 74; Resp 18 S; Pulse Ox 99% on 2 lpm NC; Pain 0/10; cc3 07:20 BP 152 / 87; Pulse 73; Resp 20 S; Pulse Ox 99% on 2 lpm NC; aa5 08:00 BP 151 / 84; Pulse 71; Resp 18 S; Pulse Ox 98% on R/A; Pain 0/10; aa5 05:45 Body Mass Index 37.66 (122.47 kg, 180.34 cm) cc3 MDM: 05:43 Patient medically screened. jr8 07:31 Data reviewed: vital signs, nurses notes, lab test result(s), EKG, radiologic studies, jr8 and as a result, I will discharge patient. Data interpreted: Pulse oximetry: on room air is 99 %. Interpretation: normal. Counseling: I had a detailed discussion with the patient and/or guardian regarding: the historical points, exam findings, and any diagnostic results supporting the discharge/admit diagnosis, lab results, radiology results, the need for outpatient follow up, a massage therapist, a family practitioner, Discussed need to echo with cards and sleep study to rule out JOAQUÍN. ED course: Pt without evidence of fluid overload on physical exam or CXR, in no distress. . 11/30 06:01 Order name: Basic Metabolic Panel; Complete Time: 06:51 cc3 11/30 06:01 Order name: CBC with Diff; Complete Time: 07:08 cc3 11/30 06:01 Order name: LFT's; Complete Time: 06:51 cc3 11/30 06:01 Order name: Magnesium; Complete Time: 06:51 cc3 11/30 06:01 Order name: NT PRO-BNP; Complete Time: 06:46 cc3 11/30 06:01 Order name: PT-INR; Complete Time: 07:08 cc3 11/30 06:01 Order name: Troponin (emerg Dept Use Only); Complete Time: 06:51 cc3 11/30 06:01 Order name: XRAY Chest (1 view); Complete Time: 07:18 cc3 11/30 06:01 Order name: EKG; Complete Time: 06:02 cc3 11/30 06:01 Order name: Cardiac monitoring; Complete Time: 06:01 cc3 11/30 06:01 Order name: EKG - Nurse/Tech; Complete Time: 06:02 cc3 11/30 06:01 Order name: IV Saline Lock; Complete Time: 06:27 cc3 11/30 06:01 Order name: Labs collected and sent; Complete Time: 06:27 cc3 11/30 06:01 Order name: O2 Per Protocol; Complete Time: 06:02 cc3 11/30 06:01 Order name: O2 Sat Monitoring; Complete Time: 06:02 cc3 Administered Medications: 06:50 Drug: hydrOXYzine 50 mg Route: PO; cc3 07:01 Follow up: Response: No adverse reaction cc3 Disposition: 12/01 07:08 Co-signature as Attending Physician, Sam Valerio MD. Available for consultation at [facility] all times. Chart complete. Chart complete. Disposition: 11/30/18 07:34 Discharged to Home. Impression: Shortness of breath. - Condition is Stable. - Discharge Instructions: Shortness of Breath, Sleep Studies. - Medication Reconciliation Form, Thank You Letter form. - Follow up: Private Physician; When: 2 - 3 days; Reason: Recheck today's complaints, Re-evaluation by your physician. - Problem is new. - Symptoms have improved. Signatures: Dispatcher [employer] EDMS Blanca Garcia RN RN aa5 Bowen Wilson PA PA jr8 Sam Valerio MD MD ps1 Parvin Callejas cc3 Corrections: (The following items were deleted from the chart) 11/30 08:23 07:34 11/30/2018 07:34 Discharged to Home. Impression: Shortness of breath. Condition aa5 is Stable. Forms are Medication Reconciliation Form, Thank You Letter, Antibiotic Education, Prescription Opioid Use. Follow up: Private Physician; When: 2 - 3 days; Reason: Recheck today's complaints, Re-evaluation by your physician. Problem is new. Symptoms have improved. jr8
[2018-11-30 08:29] VITALS: TEMP 98.1; O2SAT 99
[2018-11-30 08:31] VITALS: BP 161/81
--- NOTE | 2018-11-30 09:33 | EKG ---
Test Date: 2018-11-30 Test Time: 05:52:44 [employer]builder: GILBERT MEASUREMENT RESULTS: Intervals: Rate: 73 AK: 170 QRSD: 106 QT: 380 QTc: 418 [place]: P: 32 AK: 170 QRS: 60 T: 53 INTERPRETIVE STATEMENTS: Normal sinus rhythm Septal infarct, age undetermined Abnormal ECG Compared to ECG 08/12/2018 07:44:38 Myocardial infarct finding now present Electronically Signed On 11-30-18 09:31:59 CDT by Yoandy Snyder
== END 2018-11-30 08:23 | disposition home or self-care (01) ==
LOC: ER 05:39
DX: R06.02 Shortness of breath (principal); E11.9 Type 2 diabetes mellitus without complications; E78.5 Hyperlipidemia, unspecified; I10 Essential (primary) hypertension; I50.9 Heart failure, unspecified; Z95.5 Presence of coronary angioplasty implant and graft
CPT/HCPCS: 36415; 71045; 80048; 80076; 83735; 83880; 84484; 85025; 85610; 93005; 99284

== ENCOUNTER 2018-12-27 09:32 | Emergency (ER) | payer OTHER ==
--- NOTE | 2018-12-27 11:05 | ER ---
Nurse's Notes [facility] Name: Finn Lu Age: 68 yrs Sex: Male : 1950 Arrival Date: 12/27/2018 Time: 09:34 Bed 19 Private MD: Diagnosis: Fracture of coccyx Presentation: 12/27 09:39 Presenting complaint: Tailbone pain 8/10 after he fell from stepladder and landed on buttocks 4 days ago. Care prior to arrival: None. 09:39 Acuity: ABIGAIL 4 09:39 Method Of Arrival: Ambulatory 09:44 Transition of care: patient was not received from another setting of care. Onset of hb symptoms was December 23, 2018. Risk Assessment: Do you want to hurt yourself or someone else? Patient reports no desire to harm self or others. Initial Sepsis Screen: Does the patient meet any 2 criteria? No. Patient's initial sepsis screen is negative. Does the patient have a suspected source of infection? No. Patient's initial sepsis screen is negative. Triage Assessment: 09:42 General: Appears in no apparent distress. uncomfortable, Behavior is calm, cooperative. hb Pain: Pain currently is 8 out of 10 on a pain scale. EENT: No signs and/or symptoms were reported regarding the EENT system. Neuro: Level of Consciousness is awake, alert, obeys commands, Oriented to person, place, time, situation. Cardiovascular: Capillary refill < 3 seconds Patient's skin is warm and dry. Respiratory: Airway is patent Respiratory effort is even, unlabored, Respiratory pattern is regular, symmetrical. GI: No signs and/or symptoms were reported involving the gastrointestinal system. : No signs and/or symptoms were reported regarding the genitourinary system. Derm: Skin is intact, is healthy with good turgor. Musculoskeletal: Reports tailbone pain. Historical: - Allergies: 09:42 No Known Allergies; hb - Home Meds: 09:42 amlodipine-benazepril 5-40 mg Oral cap 1 cap once daily [Active]; Cinnamon 500 mg Oral hb cap daily [Active]; Ecotrin 81 mg Oral TbEC 1 tab once daily [Active]; escitalopram oxalate 20 mg Oral tab 1 tab once daily [Active]; Centrum Silver 0.4-300-250 mg-mcg-mcg Oral tab daily [Active]; iron 65 mg Oral once daily [Active]; metoprolol tartrate 25 mg Oral tab 1 tab 2 times per day [Active]; Novolin R 40 units Sub-Q daily [Active]; [place] 3-6-9 40-60-10 mg-mg-unit Oral cap daily [Active]; omeprazole 40 mg Oral cpDR 1 cap 2 times per day [Active]; potassium chloride 20 mEq Oral TbER 1 tab once daily [Active]; rosuvastatin 20 mg Oral tab 1 tab once daily [Active]; Vascepa 1 gram Oral cap daily [Active]; Vitamin C Oral twice a day [Active]; - PMHx: 09:42 CHF; Diabetes - IDDM; Hyperlipidemia; Hypertension; hb - PSHx: 09:42 Heart stents; hb - Immunization history:: Adult Immunizations up to date. - Social history:: Smoking status: Patient/guardian denies using tobacco. - Ebola Screening: : No symptoms or risks identified at this time. Screenin:43 Abuse screen: Denies threats or abuse. Denies injuries from another. Nutritional hb screening: No deficits noted. Tuberculosis screening: No symptoms or risk factors identified. Fall Risk None identified. Assessment: :43 General: see triage assessment. hb 11:12 Reassessment: Patient appears in no apparent distress at this time. Patient is alert, ca1 oriented x 3, equal unlabored respirations, skin warm/dry/pink. Vital Signs: 09:40 BP 143 / 79; Pulse 67; Resp 16; Temp 97.5; Pulse Ox 97% ; Weight 124.74 kg; Height 5 hb ft. 11 in. (180.34 cm); Pain 8/10; 11:12 BP 127 / 67; Pulse 71; Resp 16 S; Pulse Ox 98% on R/A; ca1 09:40 Body Mass Index 38.35 (124.74 kg, 180.34 cm) hb ED Course: 09:34 Patient arrived in ED. rg4 09:39 eYsi Fajardo, RN is Primary Nurse. hb 09:40 Triage completed. hb 09:40 Fla[place]ita Park [facility]C [facility]. kb 09:40 Quincy Cheng MD is Attending Physician. kb 09:40 Arm band placed on. hb 09:43 Patient has correct armband on for positive identification. Call light in reach. hb 10:54 Sacrum And Coccyx XRAY In Process Unspecified. EDMS 11:13 No provider procedures requiring assistance completed. Patient did not have IV access ca1 during this emergency room visit. Administered Medications: No medications were administered Outcome: 11:04 Discharge ordered by . kb 11:13 Discharged to home ambulatory. ca1 11:13 Condition: stable 11:13 Discharge instructions given to patient, Instructed on discharge instructions, follow up and referral plans. no drinking with medication, no driving heavy equipment, medication usage, Demonstrated understanding of instructions, follow-up care, medications, Prescriptions given X 1. 11:13 Patient left the ED. ca1 Signatures: Dispatcher [employer] EDMS Flaquita Park, PEDIATRIC DENTIST-C PEDIATRIC DENTIST-Yesi Christina, RN RN Roxana Gupta rg4 Rowena Lion RN RN ca1
--- NOTE | 2018-12-27 11:06 | EDPHYS ---
Physician Documentation [facility] Name: Finn Lu Age: 68 yrs Sex: Male : 1950 Arrival Date: 12/27/2018 Time: 09:34 Bed 19 Private MD: ED Physician Quincy Cheng HPI: 12/27 10:58 This 68 yrs old Male presents to ER via Ambulatory with complaints of Buttock kb Injury. 10:58 The patient presents with pain that is acute, and tenderness. The symptoms are located kb in the coccyx area. Onset: The symptoms/episode began/occurred 4 day(s) ago. The pain does not radiate. Associated signs and symptoms: The patient has no apparent associated signs or symptoms. The problem was sustained during a fall, from step-stool. Modifying factors: The patient symptoms are alleviated by nothing, the patient symptoms are aggravated by any movement. Severity of symptoms: At their worst the symptoms were moderate, in the emergency department the symptoms are unchanged. The patient has not experienced similar symptoms in the past. The patient has not recently seen a physician. Pt reports he fell from a step-stool 4 days ago and landed on his buttocks. States he has had pain to tailbone since then that he thought would go away on its own, but hasn't. Historical: - Allergies: 09:42 No Known Allergies; hb - Home Meds: 09:42 amlodipine-benazepril 5-40 mg Oral cap 1 cap once daily [Active]; Cinnamon 500 mg Oral hb cap daily [Active]; Ecotrin 81 mg Oral TbEC 1 tab once daily [Active]; escitalopram oxalate 20 mg Oral tab 1 tab once daily [Active]; Centrum Silver 0.4-300-250 mg-mcg-mcg Oral tab daily [Active]; iron 65 mg Oral once daily [Active]; metoprolol tartrate 25 mg Oral tab 1 tab 2 times per day [Active]; Novolin R 40 units Sub-Q daily [Active]; [place] 3-6-9 40-60-10 mg-mg-unit Oral cap daily [Active]; omeprazole 40 mg Oral cpDR 1 cap 2 times per day [Active]; potassium chloride 20 mEq Oral TbER 1 tab once daily [Active]; rosuvastatin 20 mg Oral tab 1 tab once daily [Active]; Vascepa 1 gram Oral cap daily [Active]; Vitamin C Oral twice a day [Active]; - PMHx: 09:42 CHF; Diabetes - IDDM; Hyperlipidemia; Hypertension; hb - PSHx: 09:42 Heart stents; hb - Immunization history:: Adult Immunizations up to date. - Social history:: Smoking status: Patient/guardian denies using tobacco. - Ebola Screening: : No symptoms or risks identified at this time. ROS: 10:58 Constitutional: Negative for fever, chills, and weight loss, ENT: Negative for injury, kb pain, and discharge, Neck: Negative for injury, pain, and swelling, Cardiovascular: Negative for chest pain, palpitations, and edema, Respiratory: Negative for shortness of breath, cough, wheezing, and pleuritic chest pain, Abdomen/GI: Negative for abdominal pain, nausea, vomiting, diarrhea, and constipation, : Negative for injury, bleeding, discharge, and swelling, MS/Extremity: Negative for injury and deformity, Skin: Negative for injury, rash, and discoloration, Neuro: Negative for headache, weakness, numbness, tingling, and seizure. 10:58 Back: Positive for pain at rest, pain with movement. Exam: 10:57 Constitutional: This is a well developed, well nourished patient who is awake, alert, kb and in no acute distress. Head/Face: Normocephalic, atraumatic. Neck: Trachea midline, no thyromegaly or masses palpated, and no cervical lymphadenopathy. Supple, full range of motion without nuchal rigidity, or vertebral point tenderness. No Meningismus. Chest/axilla: Normal chest wall appearance and motion. Nontender with no deformity. No lesions are appreciated. Cardiovascular: Regular rate and rhythm with a normal S1 and S2. No gallops, murmurs, or rubs. Normal PMI, no JVD. No pulse deficits. Respiratory: Lungs have equal breath sounds bilaterally, clear to auscultation and percussion. No rales, rhonchi or wheezes noted. No increased work of breathing, no retractions or nasal flaring. Abdomen/GI: Soft, non-tender, with normal bowel sounds. No distension or tympany. No guarding or rebound. No evidence of tenderness throughout. Skin: Warm, dry with normal turgor. Normal color with no rashes, no lesions, and no evidence of cellulitis. MS/ Extremity: Pulses equal, no cyanosis. Neurovascular intact. Full, normal range of motion. Neuro: Awake and alert, GCS 15, oriented to person, place, time, and situation. Cranial nerves II-XII grossly intact. Motor strength 5/5 in all extremities. Sensory grossly intact. Cerebellar exam normal. Normal gait. 10:57 Back: pain, that is moderate, of the sacrum, ROM is normal, normal spinal alignment noted. Vital Signs: 09:40 BP 143 / 79; Pulse 67; Resp 16; Temp 97.5; Pulse Ox 97% ; Weight 124.74 kg; Height 5 hb ft. 11 in. (180.34 cm); Pain 8/10; 11:12 BP 127 / 67; Pulse 71; Resp 16 S; Pulse Ox 98% on R/A; ca1 09:40 Body Mass Index 38.35 (124.74 kg, 180.34 cm) hb MDM: 09:40 Patient medically screened. kb 10:57 Data reviewed: vital signs, nurses notes. Data interpreted: Pulse oximetry: on room air kb is 97 %. Interpretation: normal. 11:02 Test interpretation: by ED physician or midlevel provider: plain radiologic studies, malcom fracture of coccyx. Counseling: I had a detailed discussion with the patient and/or guardian regarding: the historical points, exam findings, and any diagnostic results supporting the discharge/admit diagnosis, radiology results, the need for outpatient follow up, a family practitioner, to return to the emergency department if symptoms worsen or persist or if there are any questions or concerns that arise at home. 12/27 09:40 Order name: Sacrum And Coccyx XRAY kb Administered Medications: No medications were administered Disposition: 12/28 07:16 Co-signature as Attending Physician, Quincy Cheng MD I agree with the assessment and kdr plan of care. Disposition: 12/27/18 11:04 Discharged to Home. Impression: Fracture of coccyx. - Condition is Stable. - Discharge Instructions: Tailbone Injury, [id number]. - Prescriptions for Tramadol 50 mg Oral Tablet - take 1 tablet by ORAL route every 8 hours as needed; 12 tablet. - Medication Reconciliation Form, Thank You Letter, Antibiotic Education, Prescription Opioid Use form. - Follow up: Emergency Department; When: As needed; Reason: Worsening of condition. Follow up: Private Physician; When: 2 - 3 days; Reason: Recheck today's complaints, Continuance of care, Re-evaluation by your physician. Signatures: Dispatcher [employer] EDMS Flaquita Park, FIELD SALES TRAINER-C FIELD SALES TRAINER-Quincy Felipe MD MD [facility] Yesi Fajardo RN RN Rowena Lion RN RN ca1 Corrections: (The following items were deleted from the chart) 12/27 11:13 11:04 12/27/2018 11:04 Discharged to Home. Impression: Fracture of coccyx. Condition is ca1 Stable. Forms are Medication Reconciliation Form, Thank You Letter, Antibiotic Education, Prescription Opioid Use. Follow up: Emergency Department; When: As needed; Reason: Worsening of condition. Follow up: Private Physician; When: 2 - 3 days; Reason: Recheck today's complaints, Continuance of care, Re-evaluation by your physician. kb
[2018-12-27 11:19] VITALS: TEMP 97.5
[2018-12-27 11:21] VITALS: BP 127/67; O2SAT 98
--- NOTE | 2018-12-27 11:38 | RAD REPORT ---
EXAM DESCRIPTION: RAD - Sacrum And Coccyx - 12/27/2018 10:49 am FINDINGS: No definitive fracture line is seen. The lower 2 coccygeal segments are displaced posterio rly which could be trauma in origin. No pathologic bone process. No presacral soft tissue thickening.
== END 2018-12-27 11:13 | disposition home or self-care (01) ==
LOC: ER 09:32
DX: S32.2XXA Fracture of coccyx, initial encounter for closed fracture (principal); W08.XXXA Fall from other furniture, initial encounter; Y93.89 Activity, other specified; Y92.9 Unspecified place or not applicable; I10 Essential (primary) hypertension; E11.9 Type 2 diabetes mellitus without complications; Z79.4 Long term (current) use of insulin; E78.5 Hyperlipidemia, unspecified; I50.9 Heart failure, unspecified
CPT/HCPCS: 72220; 99283